=== PATIENT | male | born 1990 | race Caucasian/White ===

== ENCOUNTER 2023-04-12 14:49 | Emergency (ER) | payer SELFPAY ==
[2023-04-12] VITALS (12 sets, daily range): BP systolic 124–149; BP diastolic 88–112; PULSE 63–70; RESP 16–18; TEMP 36.4; O2SAT 95–99
[2023-04-12] MEDS: KETOROLAC 30 MG/ML VIAL (*BKC) IV PUSH (16:24)
--- NOTE | 2023-04-12 16:38 | ED.GENADULT ---
HPI - General Adult General Chief complaint: Extremity Problem,Nontraumatic Stated complaint: Right leg swollen, concerned for blood clot Time Seen by Provider: 04/12/23 16:02 History of Present Illness HPI narrative: Patient is a 33-year-old male who presents ER with discomfort to his right lower extremity. It starts at the top of the meaning and moves down to his ankle. He feels like he has tightness and tingling. No actual decrease in sensation with touch. No trauma to the leg. Him and his partner feel like they felt a knot in the back of the calf and knee are concerned there is a blood clot. Patient has had no previous history of blood clots nor has a family member. She has no chest pain or shortness of breath. Denies fevers chills or sweats. No recent injury or immobilization. Related Data Allergies Allergy/AdvReac Type Severity Reaction Status Date / Time No Known Allergies Allergy Verified 04/12/23 15:38 Review of Systems Cardiovascular: Cardiovascular: Denies chest pain and Denies rapid heart rate Respiratory: Respiratory: Denies cough and Denies dyspnea Musculoskeletal: Musculoskeletal: Denies arthralgias and Denies joint swelling Comments: Right calf pain Neurologic: Denies focal weakness and Denies numbness Comments: Right lower extremity tingling PMFSH Past Medical History Medical History (Updated 04/12/23 @ 18:23 by Himanshu Astorga MD) Healthy adult male Surgical History Surgical History (Updated 04/12/23 @ 16:39 by Himanshu Astorga MD) No history of previous surgery Exam Narrative: GENERAL: Well-appearing, well-nourished, and in no acute distress. HEAD: Normocephalic, atraumatic. ENT: Mucous membranes moist. CHEST: Clear to auscultation. No respiratory distress. HEART: Regular rate and rhythm. Normal peripheral pulses. EXTREMITIES: Normal range of motion. No edema. Normal pulses of the right foot and ankle. Discomfort with palpation right calf without palpable mass or not. SKIN: Warm, dry, no rash. NEURO: Alert and oriented x3. No sensory deficit right lower extremity. PSYCH: Normal mood and affect. Course Course Emergency Course: Patient resting comfortably. Informed of results. D-dimer negative. Will arrange for outpatient ultrasound of the right lower extremity call morning. No need for blood thinning medication at this time. Sensation to light is gone away with Toradol. Recommend ibuprofen at home. Vital Signs Vital signs: Vital Signs Temperature 97.6 F 04/12/23 15:34 Pulse Rate 70 04/12/23 15:34 Respiratory Rate 18 04/12/23 15:34 Blood Pressure 149/112 H 04/12/23 15:34 Pulse Oximetry 97 04/12/23 15:34 Oxygen Delivery Room Air 04/12/23 15:34 Temperature 97.6 F 04/12/23 15:34 Pulse Rate 70 04/12/23 15:34 Respiratory Rate 18 04/12/23 15:34 Blood Pressure 130/94 H 04/12/23 18:30 Pulse Oximetry 99 04/12/23 18:45 Oxygen Delivery Room Air 04/12/23 15:34 Medical Decision Making Vital Signs Vital Signs: Vital Signs Temperature 97.6 F 04/12/23 15:34 Pulse Rate 70 04/12/23 15:34 Respiratory Rate 18 04/12/23 15:34 Blood Pressure 149/112 H 04/12/23 15:34 Pulse Oximetry 97 04/12/23 15:34 Oxygen Delivery Room Air 04/12/23 15:34 Temperature 97.6 F 04/12/23 15:34 Pulse Rate 70 04/12/23 15:34 Respiratory Rate 18 04/12/23 15:34 Blood Pressure 130/94 H 04/12/23 18:30 Pulse Oximetry 99 04/12/23 18:45 Oxygen Delivery Room Air 04/12/23 15:34 Lab Data 04/12/23 17:20 04/12/23 18:19 Labs: Lab Results 04/12/23 04/12/23 Range/Units 17:20 18:19 WBC 8.5 (4.5-10.0) K/mm3 RBC 5.01 (4.6-6.20) M/mm3 Hgb 14.4 (14.0-18.0) g/dL Hct 42.4 (42.0-52.0) % MCV 84.6 (80-100) fl MCH 28.7 (26-34) pg MCHC 34.0 (32-36) g/dl RDW 12.3 (11.5-14.5) % Plt Count 290 (150-375) k/mm3 MPV 10.1 (7.4-10.4) fl Imm
[2023-04-12 17:30] LABS: Basophils Absolute Auto 0.1 K/mm3 (0.0-0.1); Basophils Percent Auto 0.8 % (0.2-1.2); Eosinophils Absolute Auto 0.1 K/mm3 (0-0.3); Eosinophils Percent Auto 1.7 % (0-4.4); Hematocrit 42.4 % (42.0-52.0); Hemoglobin 14.4 g/dL (14.0-18.0); Immature Granulocyte Absolute 0.02 K/mm3 (0.00-0.031); Immature Granulocyte Percent A 0.2 % (0-0.5); Lymphocytes Absolute Auto 3.13 K/mm3 (0.9-3.2); Mean Corpuscular Hemoglobin 28.7 pg (26-34); Mean Corpuscular Volume 84.6 fl (80-100); Mean Platelet Volume 10.1 fl (7.4-10.4); Monocytes Absolute Auto 0.6 K/mm3 (0.1-0.6); Monocytes Percent Auto 7.6 % (2.6-8.5); Neutrophils Absolute Auto 4.5 K/mm3 (1.3-6.7); Neutrophils Percent Auto 52.7 % (45.5-73.1); Platelet Count Result 290 k/mm3 (150-375); Red Blood Count 5.01 M/mm3 (4.6-6.20); Red Cell Distribution Width 12.3 % (11.5-14.5); White Blood Count 8.5 K/mm3 (4.5-10.0)
[2023-04-12 18:04] LABS: D Dimer 0.33 ug/mL (<0.48)
[2023-04-12 18:44] LABS: Alanine Aminotransferase 36 U/L (6-50); Albumin Level 4.5 g/dL (3.5-5.1); Alkaline Phosphatase 27 U/L (38-126); Anion Gap 5 mmol/L (8-16); Aspartate Amino Transferase 31 U/L (17-59); Bilirubin,Total 0.6 mg/dL (0.2-1.3); Blood Urea Nitrogen 12 mg/dL (9-20); Calcium 8.7 mg/dL (8.4-10.2); Carbon Dioxide 29 mmol/L (22-30); Chloride 105 mmol/L (98-107); Estimated Glomerular Filt Rate > 60; Glucose 83 mg/dL (65-110); Potassium 4.1 mmol/L (3.4-5.0); Sodium 139 mmol/L (137-145)
== END 2023-04-12 18:57 | disposition home or self-care (01) ==
PROVIDERS: Emergency Provider Emergency Medicine
DX: M79.661 Pain in right lower leg (principal); M79.89 Other specified soft tissue disorders
CPT/HCPCS: 36415; 80053; 85025; 85380; 96374; 99284; J1885

== ENCOUNTER 2023-04-13 07:06 | Outpatient (CLI) | payer SELFPAY ==
--- NOTE | ~2023-04-13 | US_ITS ---
EXAMINATION:US venous doppler LE RT INDICATION:Right lower leg pain TECHNIQUE: Multiple grayscale, color flow and Doppler images of the right lower extremity deep venous systems were obtained and reviewed. COMPARISON:No prior studies for comparison. FINDINGS: The common femoral, superficial femoral and popliteal veins demonstrate normal respiratory variation, augmentation and compressibility. Color flow is also seen within the posterior tibial, pe roneal, greater saphenous and profunda veins. IMPRESSION: 1: No lower extremity deep venous thrombosis. Reviewed, dictated and finalized at location A.
== END 2023-04-13 07:07 | disposition home or self-care (01) ==
PROVIDERS: Visit Provider Emergency Medicine
DX: M79.661 Pain in right lower leg (principal)
CPT/HCPCS: 93971